=== PATIENT | male | born 1940 | race Caucasian/White ===

== ENCOUNTER → 2016-09-16 | Outpatient (CLI) | payer MEDICARE | LOC: LAB.O 14:48 | PROVIDERS: ATTEND Urology | DX: C61 Malignant neoplasm of prostate (principal) ==

== ENCOUNTER → 2016-12-14 | Outpatient (CLI) | payer MEDICARE | END | disposition home or self-care (01) | LOC: NC 12:37 | PROVIDERS: ATTEND Family Medicine | DX: E78.2 Mixed hyperlipidemia (principal); I10 Essential (primary) hypertension ==

== ENCOUNTER 2017-03-01 10:26 | Emergency (ER) | payer MEDICARE ==
--- NOTE | 2017-03-01 10:39 | ED.PDOC ---
History of Present Illness - General Chief Complaint: GI Problem Stated Complaint: Vomiting blood and bloody diarrhea Time Seen by Provider: 03/01/17 10:33 Information Source: patient, RN notes reviewed, Vital Signs reviewed, EMS Exam Limitations: no limitations - History of Present Illness Initial Comments: Patient comes in with c/o bloody diarrhea and vomiting that started last night. Has ~4 bloody stools last night and one again this morning. ~4-6 episodes of vomiting, initially with dark blood but the last episode on the way to the ER was just clear liquid - no visible blood. Reports some mild abdominal cramping with this but no severe pain. + weakness. NO prior episodes of hematemasis or rectal bleeding. Had EGD and colonoscopy years (>10) ago. No PURCELL, fever, chills, chest pain or SOB. Abdominal Pain Onset Location: generalized abdomen Pain Radiation: no radiation Quality: mild, cramping Timing/Duration: 7-24 hours Improving Factors: nothing Worsening Factors: nothing Associated Symptoms: diarrhea, fatigue, nausea/vomiting, weakness Review of Systems - Review of Systems Constitutional: States: malaise, weakness. Denies: chills, fever Respiratory: States: no symptoms reported. Denies: cough, short of breath Cardiology: States: no symptoms reported. Denies: chest pain Gastrointestinal/Abdominal: States: see HPI, abdominal pain, diarrhea, nausea, vomiting Musculoskeletal: States: no symptoms reported Skin: States: no symptoms reported Neurological: States: no symptoms reported All other Systems: No Change from Baseline Past Medical History (General) - Patient Medical History Hx Seizures: No Hx Dementia: No Hx of COPD: Yes Hx Cardiac Disorders: No Hx Hypertension: Yes Hx Diabetes: No Hx Renal Disease: No Hx Cancer: Yes - prostrate - Social History Hx Alcohol Use: Yes Family Medical History - Family History Father Family History: Unknown Physical Exam - Physical Exam General Appearance: Alert, Comfortable, No apparent distress, Well Developed, Well Nourished Neck: supple, normal inspection Respiratory: chest non-tender, lungs clear, normal breath sounds, no respiratory distress, no accessory muscle use Cardiovascular/Chest: normal peripheral pulses, regular rate, rhythm, no edema, no gallop, no murmur Peripheral Pulses: 2+ Gastrointestinal/Abdominal: non tender, soft, no organomegaly, no pulsatile mass , abnormal bowel sounds - hypoactive Rectal Exam: normal rectal tone, heme positive stool - Grossly bloody, hemorrhoids Extremity: normal range of motion, non-tender, normal inspection, no pedal edema Neurologic: alert, normal mood/affect, oriented x 3 Skin Exam: normal color, warm/dry Comments: Vital Signs 03/01/17 10:29 Temperature 97.6 F Pulse Rate [ 134 H left brachial] Respiratory 20 Rate Blood Pressure 112/78 [left brachial] O2 Sat by Pulse 94 L Oximetry Progress - Progress Progress: 03/01/17 11:17 Patient is feeling much better after Zofran 4mg IV - Results/Orders Results/Orders: Laboratory Tests 03/01/17 03/01/17 03/01/17 10:20 10:20 10:20 WBC 7.7 RBC 4.27 L Hgb 14.4 Hct 43.6 MCV 102.1 H MCH 33.7 H MCHC 32.9 L RDW 14.4 Plt Count 230 MPV 10.9 H Absolute Neuts (auto) 5.70 Absolute Lymphs (auto) 1.50 Absolute Monos (auto) 0.50 Absolute Eos (auto) 0.00 Absolute Basos (auto) 0.00 Neutrophils % 74.0 Lymphocytes % 19.0 L Monocytes % 6.8 Eosinophils % 0.0 L Basophils % 0.2 PT 10.4 INR 0.920 PTT (SP) 25.3 Sodium 141 Potassium 4.0 Chloride 100 L Carbon Dioxide 27 Anion Gap 18.0 BUN 41 H Creatinine 1.15 BUN/Creatinine Ratio 35.7 H Random Glucose 348 H Serum Osmolality 305.2 H Calcium 9.1 Total Bilirubin 1.0 AST 105 H ALT 56 Alkaline Phosphatase 156 H Serum Total Protein 6.6 Albumin 3.1 L Globulin 3.5 Albumin/Globulin Ratio 0.9 L Stool Occult Blood 03/01/17 11:20 WBC RBC Hgb Hct MCV MCH MCHC RDW Plt Count MPV Absolute Neuts (auto) Absolute Lymphs (auto) Absolute Monos (auto) Absolute Eos (auto) Absolute Basos (auto) Neutrophils % Lymphocytes % Monocytes % Eosinophils % Basophils % PT INR PTT (SP) Sodium Potassium Chloride Carbon Dioxide Anion Gap BUN Creatinine BUN/Creatinine Ratio Random Glucose Serum Osmolality Calcium Total Bilirubin AST ALT Alkaline Phosphatase Serum Total Protein Albumin Globulin Albumin/Globulin Ratio Stool Occult Blood Positive Departure - Departure Clinical Impression: Hematemesis with nausea, Hematochezia Time of Disposition: 12:17 Disposition: Transfer to Hospital Condition: Fair Departure Forms: ED Discharge - Pt. Copy, Patient Portal Self Enrollment Referrals: Dae Cat MD [Primary Care Provider] - 1-2 Weeks Home Medications: Ambulatory Orders Albuterol Inhaler [Ventolin Hfa Inhaler] 2 puff INH Q6H #1 inh 12/23/14 Budesonide Inhaler [Pulmicort Flexhaler] 1 puff INH BID #1 inh 12/23/14 Methylprednisolone [Medrol Dose Maximus] 4 mg PO QAM #1 tab 12/23/14 Pantoprazole Sodium [Protonix] 20 mg PO QAM #30 tab 12/23/14 Sucralfate Tab [Carafate Tab] 1 gm PO Q6H #20 tab 12/23/14 Transfer to Outside Facility - Transfer Information Accepting Provider:: Dr. Jacob Accepting Facility: [facility] Reason for Transfer: required specialist not available - [facility]
[2017-03-01] MEDS: ONDANSETRON INJ 4 MG/2 ML VIAL IV ONE (10:42)
--- NOTE | 2017-03-01 11:13 | RAD ---
EXAM DESCRIPTION: Structure series, 3 views CLINICAL HISTORY: Hematemasis rectal bleeding FINDINGS/ IMPRESSION: Normal cardiomediastinal silhouette. Mild hyperinflation. The lungs are clear Bowel gas pattern is normal. No bowel obstruction, pneumatosis or free intraperitoneal air. No organomegaly or obvious abdominal mass lesion Electronically signed by: Michael Hearn MD 03/01/2017 11:12 AM CDT
[2017-03-01] MEDS ORDERED: PANTOPRAZOLE SODIUM IV 40 MG VIAL ONE (12:32)
[2017-03-01] MEDS ORDERED: SODIUM CHLORIDE 0.9% 100ML 100 ML IVPB ONE (12:33)
[2017-03-01] MEDS: SODIUM CHLORIDE 0.9% 1000ML 1,000 ML IVS ONE (12:42)
[2017-03-01] MEDS: PANTOPRAZOLE INJECTION 40 MG in SODIUM CHLORIDE 0.9% 100ML 100 ML IVPB ONE (12:42)
[2017-03-01] MEDS: PANTOPRAZOLE SODIUM IV 40 MG VIAL IV ONE (12:55)
[2017-03-01 13:23] VITALS: BP 110/70; TEMP 98; O2SAT 99
== END 2017-03-01 13:23 | disposition short-term general hospital (02) ==
LOC: ER 10:26
DX: K92.0 Hematemesis (principal); K92.1 Melena; J44.9 Chronic obstructive pulmonary disease, unspecified; I10 Essential (primary) hypertension; Z85.46 Personal history of malignant neoplasm of prostate
CPT/HCPCS: 74020; 80053; 82270; 85025; 85610; 85730; J2405; J7030; J7050

== ENCOUNTER → 2017-03-22 | Outpatient (CLI) | payer MEDICARE | END | disposition home or self-care (01) | LOC: NC 11:58 | PROVIDERS: ATTEND Family Medicine | DX: I10 Essential (primary) hypertension (principal); Z85.46 Personal history of malignant neoplasm of prostate; E78.2 Mixed hyperlipidemia; K92.2 Gastrointestinal hemorrhage, unspecified ==

== ENCOUNTER → 2017-09-01 | Outpatient (CLI) | payer MEDICARE | LOC: LAB.O 13:46 | PROVIDERS: ATTEND Urology | DX: C61 Malignant neoplasm of prostate (principal) ==

== ENCOUNTER 2017-09-18 11:59 | Emergency (ER) | payer MEDICARE ==
--- NOTE | 2017-09-18 12:41 | ED.PDOC ---
History of Present Illness - General Chief Complaint: Neuro Symptoms/Deficits Stated Complaint: dizziness, sob Time Seen by Provider: 09/18/17 12:32 Source: patient Exam Limitations: no limitations - History of Present Illness Initial Comments: Patient presents with light-headedness. It occurs when he stands and while he is walking. It is intermittent and he has had multiple previous episodes but today he felt like it was worse. He says that his heart rate "goes up" at that time as well. He has COPD and still smokes cigarettes. He says that he has never had a heart attack or any other problems with his heart. Denies chest pain or dyspnea. No new cough. No other complaints. Timing/Duration: changing over time Severity: moderate Improving Factors: rest Worsening Factors: movement Associated Symptoms: other - as in HPI Allergies/Adverse Reactions: Allergies NO KNOWN ALLERGY Allergy (Verified 09/18/17 12:20) Home Medications: Ambulatory Orders Albuterol Inhaler [Ventolin Hfa Inhaler] 2 puff INH Q6H #1 inh 12/23/14 Budesonide Inhaler [Pulmicort Flexhaler] 1 puff INH BID #1 inh 12/23/14 Methylprednisolone [Medrol Dose Maximus] 4 mg PO QAM #1 tab 12/23/14 Pantoprazole Sodium [Protonix] 20 mg PO QAM #30 tab 12/23/14 Sucralfate Tab [Carafate Tab] 1 gm PO Q6H #20 tab 12/23/14 Prednisone [Deltasone] 20 mg PO DAILY #4 tab 09/18/17 Past Medical History (General) - Patient Medical History Hx Seizures: No Hx Dementia: No Hx of COPD: Yes Hx Cardiac Disorders: No Hx Hypertension: Yes Hx Diabetes: No Hx Renal Disease: No Hx Cancer: Yes - prostrate Surgical History: appendectomy - Vaccination History Hx Influenza Vaccination: Yes Hx Pneumococcal Vaccination: Yes - Social History Hx Tobacco Use: Yes Hx Alcohol Use: Yes - wine daily - Female History Patient is a Female of Child Bearing Age (10 -59 yrs old): No Family Medical History - Family History Father Family History: Unknown Physical Exam - Physical Exam General Appearance: Alert Eye Exam: bilateral normal Ears, Nose, Throat: normal ENT inspection Neck: non-tender Respiratory: wheezing - expiratory wheezing in mid and upper lung justin Cardiovascular/Chest: normal peripheral pulses, regular rate, rhythm Gastrointestinal/Abdominal: normal bowel sounds, non tender, soft Back Exam: no CVA tenderness Extremity: normal range of motion, non-tender 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 There were chronic T wave inversions. The EKG was similar to previous in 2015. The patient has an appointment with cardiology in [address] showed no acute abnormalities. There was mastoid air cell mastoiditis but there was no TM perforation nor purulence. The patient is asymptomatic for systemic mastoiditis. Will have him see his pcp regarding this. CXR showed COPD but nothing acute. wbc normal. Patient was given NS one liter IV bolus x one and solumedrol 60 mg IV x one. Sent home with 4 more days of oral prednisone 20 mg po qday. Questions were elicited and answered. Patient voiced understanding and agreement with the plan. Laboratory Tests 09/18/17 09/18/17 09/18/17 12:54 12:54 12:54 WBC 5.6 RBC 5.57 Hgb 13.7 L Hct 41.2 L MCV 74.0 L MCH 24.5 L MCHC 33.3 RDW 23.1 H Plt Count 257 MPV 9.2 Absolute Neuts (auto) 3.60 Absolute Lymphs (auto) 1.40 Absolute Monos (auto) 0.50 Absolute Eos (auto) 0.10 Absolute Basos (auto) 0.00 Neutrophils % 65.3 Lymphocytes % 24.3 Monocytes % 8.2 Eosinophils % 1.3 Basophils % 0.9 PT INR PTT (SP) pCO2 pO2 HCO3 ABG pH ABG O2 Saturation ABG Base Excess ABG Deoxyhemoglobin Oxyhemoglobin % Carboxyhemoglobin % Methemoglobin % Sat Calc Total Hemoglobin Sodium 135 Potassium 3.7 Chloride 99 L Carbon Dioxide 27 Anion Gap 12.7 BUN 18 Creatinine 0.83 BUN/Creatinine Ratio 21.7 H Random Glucose 176 H Serum Osmolality 276.3 Calcium 9.8 Total Bilirubin 0.8 AST 33 ALT 23 Alkaline Phosphatase 79 Creatine Kinase 32 L CK-MB (CK-2) 1.5 CK-MB (CK-2) % Not Reportable Troponin I 0.02 B-Natriuretic Peptide 51.1 Serum Total Protein 7.2 Albumin 3.5 Globulin 3.7 H Albumin/Globulin Ratio 0.9 L TSH Thyroxine (T4) Urine Color Urine Appearance Urine pH Ur Specific [place] Urine Protein Urine Glucose (UA) Urine Ketones Urine Blood Urine Nitrite Urine Bilirubin Urine Urobilinogen Ur Leukocyte Esterase Urine RBC Urine WBC Ur Epithelial Cells Urine Bacteria 09/18/17 09/18/17 09/18/17 12:54 12:54 13:18 WBC RBC Hgb Hct MCV MCH MCHC RDW Plt Count MPV Absolute Neuts (auto) Absolute Lymphs (auto) Absolute Monos (auto) Absolute Eos (auto) Absolute Basos (auto) Neutrophils % Lymphocytes % Monocytes % Eosinophils % Basophils % PT 10.8 INR 0.930 PTT (SP) 31.0 pCO2 38 pO2 77 L HCO3 26.2 ABG pH 7.450 ABG O2 Saturation 97.3 ABG Base Excess 2.7 ABG Deoxyhemoglobin 2.6 Oxyhemoglobin % 92.4 L Carboxyhemoglobin % 3.7 H Methemoglobin % Sat 1.3 Calc Total Hemoglobin 12.8 L Sodium Potassium Chloride Carbon Dioxide Anion Gap BUN Creatinine BUN/Creatinine Ratio Random Glucose Serum Osmolality Calcium Total Bilirubin AST ALT Alkaline Phosphatase Creatine Kinase CK-MB (CK-2) CK-MB (CK-2) % Troponin I B-Natriuretic Peptide Serum Total Protein Albumin Globulin Albumin/Globulin Ratio TSH 1.46 Thyroxine (T4) 5.24 L Urine Color Urine Appearance Urine pH Ur Specific [place] Urine Protein Urine Glucose (UA) Urine Ketones Urine Blood Urine Nitrite Urine Bilirubin Urine Urobilinogen Ur Leukocyte Esterase Urine RBC Urine WBC Ur Epithelial Cells Urine Bacteria 09/18/17 14:35 WBC RBC Hgb Hct MCV MCH MCHC RDW Plt Count MPV Absolute Neuts (auto) Absolute Lymphs (auto) Absolute Monos (auto) Absolute Eos (auto) Absolute Basos (auto) Neutrophils % Lymphocytes % Monocytes % Eosinophils % Basophils % PT INR PTT (SP) pCO2 pO2 HCO3 ABG pH ABG O2 Saturation ABG Base Excess ABG Deoxyhemoglobin Oxyhemoglobin % Carboxyhemoglobin % Methemoglobin % Sat Calc Total Hemoglobin Sodium Potassium Chloride Carbon Dioxide Anion Gap BUN Creatinine BUN/Creatinine Ratio Random Glucose Serum Osmolality Calcium Total Bilirubin AST ALT Alkaline Phosphatase Creatine Kinase CK-MB (CK-2) CK-MB (CK-2) % Troponin I B-Natriuretic Peptide Serum Total Protein Albumin Globulin Albumin/Globulin Ratio TSH Thyroxine (T4) Urine Color Yellow Urine Appearance Clear Urine pH 7.0 Ur Specific [place] 1.020 Urine Protein Trace Urine Glucose (UA) Negative Urine Ketones 15 H Urine Blood Negative Urine Nitrite Negative Urine Bilirubin Negative Urine Urobilinogen 0.2 Ur Leukocyte Esterase Negative Urine RBC 0 Urine WBC 0 Ur Epithelial Cells 0 Urine Bacteria 0 09/18/17 15:37 Departure - Departure Clinical Impression: Light headedness, Tobacco abuse counseling Disposition: Discharge to Home or Self Care Condition: Good Departure Forms: ED Discharge - Pt. Copy, Patient Portal Self Enrollment Diet: other - as per your regular doctor Activity: other - as per your regular doctor Referrals: Dae Cat MD [Primary Care Provider] - 1-2 Weeks Prescriptions: Prednisone [Deltasone] 20 mg PO DAILY #4 tab Home Medications: Ambulatory Orders Albuterol Inhaler [Ventolin Hfa Inhaler] 2 puff INH Q6H #1 inh 12/23/14 Budesonide Inhaler [Pulmicort Flexhaler] 1 puff INH BID #1 inh 12/23/14 Methylprednisolone [Medrol Dose Maximus] 4 mg PO QAM #1 tab 12/23/14 Pantoprazole Sodium [Protonix] 20 mg PO QAM #30 tab 12/23/14 Sucralfate Tab [Carafate Tab] 1 gm PO Q6H #20 tab 12/23/14 Prednisone [Deltasone] 20 mg PO DAILY #4 tab 09/18/17 Additional Instructions: Stop smoking. See your regular doctor about smoking cessation options. Take the mediation as prescribed. Return immediately to the E.R. for worsening symptoms, fainting, shortness of breath, or chest pain.
--- NOTE | 2017-09-18 13:14 | RAD ---
Procedure: XR CHEST 2 VIEWS Exam Date: 09/18/2017 12:44 PM CDT Ordering Provider: Rahul Garcia Clinical Indication: light-headedness and palpitations Comparison: None Findings: Lungs are hyperexpanded. No lobar consolidation, pleural effusion, or pneumothorax. Heart size is within normal limits. No acute osseous abnormality. Impression: COPD. No lobar consolidation. Electronically signed by: Darcie Pratt MD 09/18/2017 1:12 PM CDT
[2017-09-18] MEDS ORDERED: SODIUM CHLORIDE 0.9% 1000ML 1,000 ML IVS ONE (13:27)
--- NOTE | 2017-09-18 14:45 | CT ---
PROCEDURE: Head HISTORY: light-headedness Indication: Same as above Comparison: None Technique: CT of the head was done without intravenous contrast was done in the orthogonal planes. This exam was performed according to our departmental dose-optimization program, which includes automated exposure control, adjustment of the mA and/or KV according to the patient's size and/or use of iterative reconstruction technique. FINDINGS: There is no intracranial hemorrhage, midline shift mass effect or acute focal infarct. There is prominence of the sylvian fissures and the cortical sulci reflecting age related volume loss. If clinical concern exists regarding an acute ischemic/vascular pathology being responsible for patient's symptomatology, an MRI of the brain is more sensitive than the current study, in ruling out such a possibility. There is good velásquez/white matter differentiation. The ventricular system is normal. The mastoid air cells show evidence of prior bilateral mastoid surgery and presence of mastoiditis in the remaining bilateral mastoid air cells . The paranasal sinuses are unremarkable . There is no visualization of acute fractures involving the calvarium or the skull base. IMPRESSION: There is no acute intracranial abnormality. Age related and chronic involutional changes are seen. Electronically signed by: Preston Garcia MD 09/18/2017 2:44 PM CDT Workstation: [id number]
[2017-09-18 15:15] VITALS: O2SAT 98
[2017-09-18] MEDS ORDERED: methylPREDNISolone SODIUM SUC 125 MG/2 ML VIAL IV ONE (15:26)
[2017-09-18 15:52] VITALS: BP 144/89; TEMP 97.9
== END 2017-09-18 15:50 | disposition home or self-care (01) ==
LOC: ER 11:59
DX: R42 Dizziness and giddiness (principal); J44.9 Chronic obstructive pulmonary disease, unspecified; I10 Essential (primary) hypertension; F17.210 Nicotine dependence, cigarettes, uncomplicated; Z85.46 Personal history of malignant neoplasm of prostate
CPT/HCPCS: 36415; 36600; 70450; 71046; 80053; 81001; 82550; 82553; 82803; 82805; 83880; 84436; 84443; 84484; 85025; 85610; 85730; 93005; J2930; J7030

== ENCOUNTER → 2017-10-08 | Outpatient (CLI) | payer MEDICARE ==
--- NOTE | 2017-10-08 13:50 | CT ---
EXAM DESCRIPTION: Abdoment/Pelvis w/o Contrast CLINICAL HISTORY: 77 years, Male, UNSPECIFIED ABD PAIN COMPARISON: X-ray abdomen March 01, 2017 TECHNIQUE: CT of the abdomen and pelvis is performed according to our non contrast protocol. FINDINGS: The lung bases are clear. Liver, spleen, and pancreas are unremarkable. No calcified gallstones. The right kidney is unremarkable. There are parapelvic cysts in the central left kidney. Prominent left renal pelvis is somewhat higher in density than expected which could indicate blood in the pelvis. The irregularity or cystic outpouching of the posterior inferior aspect of the pelvis is questioned. A mass in the lumen of the pelvis is not thought highly likely but intraluminal contrast (retrograde pyelography, excretory urogram, delayed CT images with contrast) might be helpful to ensure complete opacification and to rule out a filling defect which might suggest a urothelial neoplasm. Density is 37 Hounsfield units compared to the expected density of fluid approximately 0 Hounsfield units. Correlate for the presence of hematuria. Small bowel loops appear normal in caliber with normal wall thickness. There is no lymphadenopathy, inflammation, or free fluid observed. In the pelvis, the appendix is not seen, evidently surgically absent. No inflammation around the cecum or terminal ileum or sigmoid colon. No stones in the distal ureters or bladder. Rectal wall thickness is normal for degree of distention. No free fluid or mass in the pelvis. Prostate is not enlarged. No inguinal or lower pelvic adenopathy. Coronal and sagittal reformatted images confirm the findings. IMPRESSION: Prominent left renal pelvis with high density suggesting hematuria or urothelial neoplasm. Further evaluation is recommended as discussed above. This exam was performed according to our departmental dose-optimization program, which includes automated exposure control, adjustment of the mA and/or kV according to patient size and/or use of iterative reconstruction technique. Total DLP equals 1021.04 mGycm. Electronically signed by: Raúl Llanos MD 10/08/2017 1:48 PM CDT
== END ==
LOC: CT 09:00
PROVIDERS: ATTEND Family Medicine
DX: R10.9 Unspecified abdominal pain (principal)

== ENCOUNTER → 2017-11-19 | Outpatient (CLI) | payer MEDICARE ==
--- NOTE | 2017-11-21 17:32 | CT ---
EXAM DESCRIPTION: Abdomen w/Contrast: Computed Tomography. CLINICAL HISTORY: N13.0 COMPARISON: None. TECHNIQUE: Spiral-axial scans at 5.0 mm intervals through the abdomen, after nonionic IV contrast. No oral contrast. Coronal and sagittal 2.0 mm reconstructions. No Delayed scans. No adverse reactions. Total Exam DLP: 682.16 mGy-cm. This exam was performed according to our departmental CT dose-optimization program which includes automated exposure control, adjustment of the mA and/or kV according to patient size and/or use of iterative reconstruction technique; to reduce radiation dose to as low as reasonably achievable (ALARA). FINDINGS: Kidneys: Mild hydronephrosis in the superior pole of the left kidney with fluid density in the collecting systems. Delayed images were not obtained. The mid and inferior collecting system showing moderate hydronephrosis. There is increased density in the collecting system, +60-+80 HU. Smooth expansion of the renal pelvis. Abrupt Transition from the expanded left renal pelvis to the normal caliber of the proximal left ureter. No large calcifications in the left kidney or proximal ureter. Uniform enhancement of the renal cortex with no hydronephrosis and no large calcifications in the right kidney or proximal ureter. Lung bases and pleura: Coronary artery calcifications otherwise negative. Liver, Stomach, Spleen, Adrenal Glands: 17 cm right lobe long axis. Overall bone density of the liver. Stomach is unremarkable. Remaining solid organs are negative. Pancreas, Gallbladder, Ducts: Gallbladder visualized. Duct is negative. Basilar calcifications around the pancreas. Mesentery: Stable fascial thickening in the abdomen with no new mesenteric stranding no free air or ascites. Aorta: Moderate atherosclerotic calcifications including the ostia of the major branch vessels. Narrowing of the distal lumen extending into the bilateral common iliac arteries. No para-aortic mass. Small Bowel: Focally dilated loop of distal jejunum or proximal ileum in the anterior left lower quadrant of the abdomen, with minimal wall thickening (axial image 52 and coronal images 42-44). No stranding of the surrounding mesentery or fascial thickening. No dilation of proximal or distal segments. Terminal Ileum/Cecum: Not imaged. Tip of the appendix partially visualized. Normal fatty density. Colon: Normal caliber. Spine: L4-5 anterolisthesis. Overall bone density decreased. Also Schmorl's nodes in the T9 and T10 endplates. Abdominal Wall/Back Soft Tissues: Negative. IMPRESSION: 1. Dense mass or dense material, no focal stones, resulting in smooth expansion of the left renal pelvis and abrupt transition to normal caliber of the left ureter. Mild hydronephrosis in the left kidney with no radiodense stones in the kidney or ureter. Urothelial neoplasm cannot be excluded. Consider follow-up scan with IV contrast and delayed images of the abdomen and pelvis. Right kidney and ureter are unremarkable. 2. Focal segment of distal jejunum or proximal ileum with intraluminal material, inflammation or mass. Thickened mucosa and narrowing of the lumen seen on the prior study. Consider fluoroscopic guided barium contrast small bowel follow through for further evaluation. 3. Mild hepatomegaly with fatty infiltration. Moderate to severe atherosclerotic changes of the distal abdominal aorta. Spondylosis in the upper lumbar spine. Electronically signed by: Mendez Roach MD 11/21/2017 5:31 PM CDT
== END ==
LOC: CT 13:30
PROVIDERS: ATTEND Urology
DX: C61 Malignant neoplasm of prostate (principal); N13.0 Hydronephrosis with ureteropelvic junction obstruction; R16.0 Hepatomegaly, not elsewhere classified; K76.0 Fatty (change of) liver, not elsewhere classified; I70.0 Atherosclerosis of aorta

== ENCOUNTER → 2017-11-25 | Outpatient (CLI) | payer MEDICARE ==
--- NOTE | 2017-11-26 08:32 | NM ---
EXAM DESCRIPTION: Bone Scan, Whole Body CLINICAL HISTORY: 77 years, Male, C 61, malignant neoplasm of the prostate, injured left rib four weeks ago Imaging correlation with CT of the abdomen November 19, 2017 as well as x-ray abdomen and chest February 19, 2017 RADIOPHARMACEUTICAL: 29.6 mCi technetium 99m-MDP was administered intravenously. Three-hour delayed images of the whole body were obtained. FINDINGS: Frontal view shows intense increased activity in the left lower rib thought to be the anterolateral ninth rib correlating with CT findings from November 19, 2017. This may be related to the patient's previous injury. In addition there is increased activity in the right hip joint consistent with arthritic changes. Patient had an x-ray of the abdomen in February 2017 which showed total left hip arthroplasty, brachytherapy seeds in the prostate and severe osteoarthrosis of the right hip. There is activity in the kidneys as well as urinary bladder. Some perineal urine contamination is present. Other areas of the skeletal system show normal radionuclide accumulation. There is mild increased activity in the upper left C-spine suggesting mild degenerative change. Other then the left ninth rib, no focal intense radionuclide accumulation of the skeletal system is seen to suggest prostate metastatic disease. IMPRESSION: Positive uptake in the left ninth rib consistent with healing fracture. Increased activity in the right hip consistent with osteoarthrosis. Otherwise negative for evidence of prostate cancer osseous metastatic disease. Electronically signed by: Raúl Llanos MD 11/26/2017 8:30 AM CDT
== END ==
LOC: NM 09:30
PROVIDERS: ATTEND Urology
DX: C61 Malignant neoplasm of prostate (principal); N13.0 Hydronephrosis with ureteropelvic junction obstruction

== ENCOUNTER 2017-12-19 17:07 | Emergency (ER) | payer MEDICARE ==
[2017-12-19 17:19] VITALS: BP 106/63; TEMP 98.5; O2SAT 96
[2017-12-19] MEDS ORDERED: KETOROLAC TROMETHAMINE INJ 30 MG/ML VIAL IM ONE (17:23)
[2017-12-19] MEDS ORDERED: KETOROLAC TROMETHAMINE INJ 30 MG/ML VIAL ONE (17:23)
--- NOTE | 2017-12-19 17:27 | ED.PDOC ---
History of Present Illness - General Chief Complaint: General Stated Complaint: left sided rib pain Time Seen by Provider: 12/19/17 17:24 Source: patient Exam Limitations: no limitations Additional Information: 77 YEAR OLD FELL AND INJURED LEFT SIDE OF THE CHEST LAST EVEVNING PRESENTS WITH PAIN ON THE LEFT ANTERIOR CHEST - History of Present Illness Timing/Duration: 24 hours Severity: moderate Improving Factors: immobilization Worsening Factors: movement Associated Symptoms: chest pain, shortness of breath Allergies/Adverse Reactions: Allergies NO KNOWN ALLERGY Allergy (Verified 09/18/17 12:20) Home Medications: Ambulatory Orders Albuterol Inhaler [Ventolin Hfa Inhaler] 2 puff INH Q6H #1 inh 12/23/14 Budesonide Inhaler [Pulmicort Flexhaler] 1 puff INH BID #1 inh 12/23/14 Methylprednisolone [Medrol Dose Maximus] 4 mg PO QAM #1 tab 12/23/14 Pantoprazole Sodium [Protonix] 20 mg PO QAM #30 tab 12/23/14 Sucralfate Tab [Carafate Tab] 1 gm PO Q6H #20 tab 12/23/14 Prednisone [Deltasone] 20 mg PO DAILY #4 tab 09/18/17 Acetamin W/Cod #3 Tab [Tylenol w/CODEINE #3] 1 ea PO Q6HR PRN #40 tab 12/19/17 Review of Systems - Review of Systems Constitutional: States: no symptoms reported EENTM: States: no symptoms reported Respiratory: States: no symptoms reported Cardiology: States: no symptoms reported Gastrointestinal/Abdominal: States: no symptoms reported Genitourinary: States: no symptoms reported Skin: States: no symptoms reported Neurological: States: no symptoms reported Endocrine: States: no symptoms reported Hematologic/Lymphatic: States: no symptoms reported Past Medical History (General) - Patient Medical History Hx Seizures: No Hx Dementia: No Hx of COPD: Yes Hx Cardiac Disorders: No Hx Hypertension: Yes Hx Diabetes: No Hx Renal Disease: No Hx Cancer: Yes - prostrate - Vaccination History Hx Influenza Vaccination: Yes Hx Pneumococcal Vaccination: Yes - Social History Hx Tobacco Use: Yes Hx Alcohol Use: Yes - wine daily Family Medical History - Family History Father Family History: Unknown Physical Exam - Physical Exam General Appearance: Alert, Obvious distress Eye Exam: bilateral normal Ears, Nose, Throat: hearing grossly normal, normal ENT inspection, normal pharynx Neck: non-tender, full range of motion, supple Respiratory: chest non-tender, lungs clear, normal breath sounds, no respiratory distress, no accessory muscle use, rhonchi, other - TENDER EFT ANTERIOR CHEST WALL Cardiovascular/Chest: normal peripheral pulses, regular rate, rhythm, no edema, no gallop, no JVD, no murmur Gastrointestinal/Abdominal: normal bowel sounds, non tender, soft, no organomegaly Back Exam: normal inspection, no CVA tenderness Extremity: non-tender, normal inspection Skin Exam: normal color, warm/dry Lymphatic: no adenopathy Progress - EKG/XRAY/CT Xray Comments: fracture left 7 th rib Departure - Departure Clinical Impression: COPD (chronic obstructive pulmonary disease), Fracture of rib of left side Time of Disposition: 17:50 Disposition: Discharge to Home or Self Care Condition: Good Departure Forms: ED Discharge - Pt. Copy, Patient Portal Self Enrollment Diet: resume usual diet Referrals: Dae Cat MD [Primary Care Provider] - 1-2 Weeks Prescriptions: Acetamin W/Cod #3 Tab [Tylenol w/CODEINE #3] 1 ea PO Q6HR PRN #40 tab PRN Reason: Mild To Moderate Pain Home Medications: Ambulatory Orders Albuterol Inhaler [Ventolin Hfa Inhaler] 2 puff INH Q6H #1 inh 12/23/14 Budesonide Inhaler [Pulmicort Flexhaler] 1 puff INH BID #1 inh 12/23/14 Methylprednisolone [Medrol Dose Maximus] 4 mg PO QAM #1 tab 12/23/14 Pantoprazole Sodium [Protonix] 20 mg PO QAM #30 tab 12/23/14 Sucralfate Tab [Carafate Tab] 1 gm PO Q6H #20 tab 12/23/14 Prednisone [Deltasone] 20 mg PO DAILY #4 tab 09/18/17 Acetamin W/Cod #3 Tab [Tylenol w/CODEINE #3] 1 ea PO Q6HR PRN #40 tab 12/19/17
[2017-12-19] MEDS ORDERED: ACETAMINOPHEN W/COD #3 TAB (ER Disp) PO ONE (17:49)
--- NOTE | 2017-12-19 17:57 | RAD ---
EXAM DESCRIPTION: Chest,2 Views (accession [id number]), Ribs,Left 3 Views (accession [id number]) CLINICAL HISTORY: left rib pain after fall COMPARISON: 09/18/2017. FINDINGS: Frontal view of the chest and views of the left ribs were submitted. Cardiac silhouette is within normal limits. There is no focal parenchymal infiltrate. No pleural effusion. Flattening of hemidiaphragms consistent with COPD. No pneumothorax. There is no discrete displaced acute rib fracture. IMPRESSION: No acute rib fracture noted. No evidence of acute cardiopulmonary disease. Electronically signed by: Lisa Arechiga MD 12/19/2017 5:56 PM CDT
--- NOTE | 2017-12-19 17:57 | RAD ---
EXAM DESCRIPTION: Chest,2 Views (accession [id number]), Ribs,Left 3 Views (accession [id number]) CLINICAL HISTORY: left rib pain after fall COMPARISON: 09/18/2017. FINDINGS: Frontal view of the chest and views of the left ribs were submitted. Cardiac silhouette is within normal limits. There is no focal parenchymal infiltrate. No pleural effusion. Flattening of hemidiaphragms consistent with COPD. No pneumothorax. There is no discrete displaced acute rib fracture. IMPRESSION: No acute rib fracture noted. No evidence of acute cardiopulmonary disease. Electronically signed by: Lisa Arechiga MD 12/19/2017 5:56 PM CDT
== END 2017-12-19 17:57 | disposition home or self-care (01) ==
LOC: ER 17:07
DX: S22.32XA Fracture of one rib, left side, initial encounter for closed fracture (principal); J44.9 Chronic obstructive pulmonary disease, unspecified; I10 Essential (primary) hypertension; Z85.46 Personal history of malignant neoplasm of prostate; Z87.891 Personal history of nicotine dependence; Z79.899 Other long term (current) drug therapy; W19.XXXA Unspecified fall, initial encounter
CPT/HCPCS: 71046; 71101; J1885

== ENCOUNTER 2018-01-08 19:31 | Emergency (ER) | payer MEDICARE ==
[2018-01-08] MEDS ORDERED: PANTOPRAZOLE SODIUM IV 40 MG VIAL IV ONE (20:16)
[2018-01-08] MEDS ORDERED: ONDANSETRON INJ 4 MG/2 ML VIAL IV ONE (20:16)
[2018-01-08] MEDS ORDERED: SODIUM CHLORIDE 0.9% 500ML 500 ML IVS ONE (20:17)
[2018-01-08] MEDS ORDERED: IPRATROPIUM/ALBUTEROL 3 ML VIAL NEB ONE (20:18)
--- NOTE | 2018-01-08 20:37 | ED.PDOC ---
History of Present Illness - General Chief Complaint: Abdominal Pain Stated Complaint: abdomen pain, black stools Time Seen by Provider: 01/08/18 20:09 Information Source: patient Exam Limitations: no limitations - History of Present Illness Initial Comments: pt has had epigastric pain x 2 days with black stool. Has had multiple small stools today. Hx of bleeding ulcers. denies "blood thinners" Abdominal Pain Onset Location: epigastric Pain Radiation: no radiation Quality: moderate Timing/Duration: 24 hours Improving Factors: nothing Worsening Factors: nothing Associated Symptoms: diarrhea, fatigue, weakness Review of Systems - Review of Systems Constitutional: States: malaise, weakness EENTM: States: no symptoms reported Respiratory: States: short of breath, wheezing Cardiology: States: no symptoms reported Gastrointestinal/Abdominal: States: abdominal pain, nausea Genitourinary: States: no symptoms reported Musculoskeletal: States: no symptoms reported Skin: States: no symptoms reported Neurological: States: no symptoms reported Endocrine: States: no symptoms reported Past Medical History (General) - Patient Medical History Hx Seizures: No Hx Stroke: No Hx Dementia: No Hx Asthma: No Hx of COPD: Yes Hx Cardiac Disorders: No Hx Congestive Heart Failure: No Hx Pacemaker: No Hx Hypertension: Yes Hx Thyroid Disease: No Hx Diabetes: No Hx Gastroesophageal Reflux: Yes Hx Renal Disease: No Hx Cancer: Yes - prostrate Hx of HIV: No Hx Hepatitis C: No Hx MRSA: No - Vaccination History Hx Tetanus, Diphtheria Vaccination: No Hx Influenza Vaccination: Yes Hx Pneumococcal Vaccination: Yes - Social History Hx Tobacco Use: Yes Cigarettes Packs Per Day: 2 Hx Alcohol Use: Yes Family Medical History - Family History Father Family History: Unknown Physical Exam - Physical Exam General Appearance: Alert, No apparent distress Eyes, Ears, Nose, Throat Exam: PERRL/EOMI, pharynx normal Neck: non-tender, full range of motion, normal inspection Respiratory: rhonchi, wheezing, other - tender L lower anterior ribs (from fall one month ago) Cardiovascular/Chest: normal peripheral pulses, regular rate, rhythm, no edema Gastrointestinal/Abdominal: normal bowel sounds, soft, tenderness - epigastric Back Exam: normal inspection Extremity: normal range of motion, no pedal edema Neurologic: alert, normal mood/affect, oriented x 3 Skin Exam: normal color, warm/dry Lymphatic: no adenopathy Departure - Departure Clinical Impression: Upper GI bleed Disposition: Transfer to Hospital Condition: Good Departure Forms: ED Discharge - Pt. Copy, Patient Portal Self Enrollment Instructions: DI for Abdominal Pain-Adult Referrals: Dae Cat MD [Primary Care Provider] - 1-2 Weeks Home Medications: Ambulatory Orders Albuterol Inhaler [Ventolin Hfa Inhaler] 2 puff INH Q6H #1 inh 12/23/14 Budesonide Inhaler [Pulmicort Flexhaler] 1 puff INH BID #1 inh 12/23/14 Methylprednisolone [Medrol Dose Maximus] 4 mg PO QAM #1 tab 12/23/14 Pantoprazole Sodium [Protonix] 20 mg PO QAM #30 tab 12/23/14 Sucralfate Tab [Carafate Tab] 1 gm PO Q6H #20 tab 12/23/14 Prednisone [Deltasone] 20 mg PO DAILY #4 tab 09/18/17 Acetamin W/Cod #3 Tab [Tylenol w/CODEINE #3] 1 ea PO Q6HR PRN #40 tab 12/19/17 Transfer to Outside Facility - Transfer Information Accepting Facility: [facility] Reason for Transfer: required specialist not available - Upper GI bleed will require EGD to evaluate bleeding
[2018-01-08 22:34] VITALS: BP 154/85; TEMP 98.5; O2SAT 96
== END 2018-01-08 22:50 | disposition short-term general hospital (02) ==
LOC: ER 19:31
DX: K92.2 Gastrointestinal hemorrhage, unspecified (principal); R10.13 Epigastric pain; R19.7 Diarrhea, unspecified; R53.1 Weakness; R06.02 Shortness of breath; K21.9 Gastro-esophageal reflux disease without esophagitis; J44.9 Chronic obstructive pulmonary disease, unspecified; I10 Essential (primary) hypertension; F17.210 Nicotine dependence, cigarettes, uncomplicated; Z85.46 Personal history of malignant neoplasm of prostate; Z87.11 Personal history of peptic ulcer disease
CPT/HCPCS: 36415; 80053; 81001; 82270; 85025; 85610; 85730; 86850; 86900; 86901; 94640; J2405; J7040; J7620

== ENCOUNTER → 2018-02-09 | Outpatient (CLI) | payer MEDICARE | LOC: NC 13:54 | PROVIDERS: ATTEND Family Medicine | DX: J44.9 Chronic obstructive pulmonary disease, unspecified (principal); I10 Essential (primary) hypertension; D64.9 Anemia, unspecified; M54.16 Radiculopathy, lumbar region ==

== ENCOUNTER → 2018-05-16 | Outpatient (CLI) | payer MEDICARE | LOC: NC 08:52 | PROVIDERS: ATTEND Family Medicine | DX: J44.9 Chronic obstructive pulmonary disease, unspecified (principal); I10 Essential (primary) hypertension; E78.2 Mixed hyperlipidemia; M54.16 Radiculopathy, lumbar region; D64.9 Anemia, unspecified; K31.819 Angiodysplasia of stomach and duodenum without bleeding; K26.9 Duodenal ulcer, unspecified as acute or chronic, without hemorrhage or perforation ==

== ENCOUNTER → 2018-06-01 | Outpatient (CLI) | payer MEDICARE | LOC: GMAH 14:16 | PROVIDERS: ATTEND Family Medicine | DX: L29.9 Pruritus, unspecified (principal) ==

== ENCOUNTER → 2018-07-18 | Outpatient (CLI) | payer MEDICARE | LOC: NC 15:33 | PROVIDERS: ATTEND Family Medicine | DX: D64.9 Anemia, unspecified (principal) ==

== ENCOUNTER → 2018-08-17 | Outpatient (CLI) | payer MEDICARE | LOC: LAB.O 09:36 | PROVIDERS: ATTEND Internal Medicine Gastroenterology | DX: K92.2 Gastrointestinal hemorrhage, unspecified (principal); D50.9 Iron deficiency anemia, unspecified ==

== ENCOUNTER → 2018-11-09 | Outpatient (CLI) | payer MEDICARE | LOC: NC 11:22 | PROVIDERS: ATTEND Family Medicine | DX: J44.9 Chronic obstructive pulmonary disease, unspecified (principal); I10 Essential (primary) hypertension ==

== ENCOUNTER → 2019-03-08 | Outpatient (CLI) | payer MEDICARE | LOC: GMA MATASK 14:27 | PROVIDERS: ATTEND Family Medicine | DX: R07.2 Precordial pain (principal) ==

== ENCOUNTER 2019-07-10 11:41 | Emergency (ER) | payer MEDICARE ==
[2019-07-10 12:17] VITALS: TEMP 98.7
[2019-07-10] MEDS ORDERED: SODIUM CHLORIDE 0.9% (FLUSH) 10 ML SYG IV PRN (13:56)
--- NOTE | 2019-07-10 14:01 | ED.PDOC ---
History of Present Illness - General Chief Complaint: General Stated Complaint: dizziness and blood in urine, weakness Time Seen by Provider: 07/10/19 13:14 Source: patient - History of Present Illness Initial Comments: 79 yo male with PMH of chronic smoker, COPD who presents with cc of blood in the urine. Reports ongoing now for 3 days, bright red bloody urine without pain with each urination from beginning to end of urination. Denies any dysuria, frequency, hesitancy, testicular pain or swelling. Denies fevers, chills, abd pain, n/v/d, chest pain, dyspnea. Reports some slight dizziness/lightheadedness but no syncope. Reports has lost about 5 lbs recently. No hx of kidney stones reported. Has never had these sx's before. Smokes cigarettes daily. Allergies/Adverse Reactions: Allergies NO KNOWN ALLERGY Allergy (Verified 07/10/19 12:17) Home Medications: Ambulatory Orders Albuterol Inhaler [Ventolin Hfa Inhaler] 2 puff INH Q6H #1 inh 12/23/14 Budesonide Inhaler [Pulmicort Flexhaler] 1 puff INH BID #1 inh 12/23/14 Methylprednisolone [Medrol Dose Maximus] 4 mg PO QAM #1 tab 12/23/14 Pantoprazole Sodium [Protonix] 20 mg PO QAM #30 tab 12/23/14 Sucralfate Tab [Carafate Tab] 1 gm PO Q6H #20 tab 12/23/14 Prednisone [Deltasone] 20 mg PO DAILY #4 tab 09/18/17 Acetamin W/Cod #3 Tab [Tylenol w/CODEINE #3] 1 ea PO Q6HR PRN #40 tab 12/19/17 Review of Systems - Review of Systems Review of Systems: 07/10/19 14:41 as per HPI All other Systems: Reviewed and Negative Past Medical History (General) - Patient Medical History Hx Seizures: No Hx Stroke: No Hx Dementia: No Hx Asthma: No Hx of COPD: Yes Hx Cardiac Disorders: No Hx Congestive Heart Failure: No Hx Pacemaker: No Hx Hypertension: Yes Hx Thyroid Disease: No Hx Diabetes: No Hx Gastroesophageal Reflux: Yes Hx Renal Disease: No Hx Cancer: Yes - prostrate Hx of HIV: No Hx Hepatitis C: No Hx MRSA: No Surgical History: appendectomy - Vaccination History Hx Tetanus, Diphtheria Vaccination: No Hx Influenza Vaccination: Yes Hx Pneumococcal Vaccination: Yes - Social History Hx Tobacco Use: Yes Hx Alcohol Use: No - daily, glass of wine Hx Substance Use: No Family Medical History - Family History Father Family History: Unknown Physical Exam - Physical Exam General Appearance: Alert, Comfortable, No apparent distress Eye Exam: bilateral normal Ears, Nose, Throat: hearing grossly normal, normal ENT inspection, normal pharynx Neck: non-tender, full range of motion, supple, normal inspection Respiratory: chest non-tender, lungs clear, normal breath sounds, no respiratory distress Cardiovascular/Chest: normal peripheral pulses, regular rate, rhythm, no edema, no murmur Peripheral Pulses: radial,right: 2+, radial,left: 2+ Gastrointestinal/Abdominal: normal bowel sounds, non tender, soft, no organomegaly Back Exam: normal inspection, no CVA tenderness, no vertebral tenderness Extremity: normal range of motion, non-tender, normal inspection, no pedal edema, no calf tenderness Neurologic: golf caddie II-XII nml as tested, no motor/sensory deficits, alert, normal mood/affect, oriented x 3 Skin Exam: warm/dry, pallor - mild throughout Lymphatic: no adenopathy Progress - Progress Progress: 07/10/19 13:00 Painless gross hematuria -in smoker, concern for malignancy - bladder tumor most likely. Consider other masses, benign causes, kidney stones, etc... -check UA, CBC, CMP, cardiac work-up 07/10/19 16:36 -Pt's UA with TNTC RBCs. CBC & coags pretty unremarkable. CT A/P w/wo contrast obtained which revealed a filling defect in the left lower renal pelvis which is concerning for mass/malignancy possibly (specifically transitional cell carcinoma mentioned by radiology). The mass was also noted on his 2018 CT scan and now appears slightly larger. Pt reports he wasn't aware of the mass and has not had any further investigation of it to this point. Pt also noted to have punctate calculus in mid left kidney. No other abnormalities found to explain gross hematuria. -I spoke with pt's PCP, Dr. العراقي, regarding the findings. He will have his clinic call the patient tomorrow to schedule a f/u visit later this week for outpatient urology referral. -discussed all of the above with the patient in detail including the kidney mass and concern for possible cancer, all questions answered. -dc pt home in fair condition, return warnings discussed. Advised smoking cessation. Tyree Braden MD Billing #[id number] 07/10/19 13:56 IV Care:Saline Lock per Protoc QSHIFT Telemetry .ONCE Sodium Chloride 0.9% (Flush) [Saline Flush Syringe] 10 ml IV PRN PRN 07/10/19 14:00 EKG STAT UA [URINALYSIS] Stat 07/10/19 14:39 Hold Metformin x 48Hrs [id number] 07/11/19 09:00 Pulse Ox Daily Laboratory Results - last 24 hr 07/10/19 07/10/19 07/10/19 12:15 12:40 12:40 WBC 7.0 RBC 4.68 L Hgb 16.4 Hct 47.5 MCV 101.5 H MCH 35.0 H MCHC 34.4 RDW 14.2 Plt Count 201 MPV 10.6 H Absolute Neuts (auto) 5.40 Absolute Lymphs (auto) 1.00 Absolute Monos (auto) 0.60 Absolute Eos (auto) 0.00 Absolute Basos (auto) 0.00 Neutrophils % 76.2 Lymphocytes % 14.1 L Monocytes % 8.3 Eosinophils % 0.7 L Basophils % 0.7 PT INR PTT (SP) Sodium 139 Potassium 3.9 Chloride 102 Carbon Dioxide 25 Anion Gap 15.9 BUN 16 Creatinine 0.80 BUN/Creatinine Ratio 20.0 Random Glucose 165 H Serum Osmolality 282.4 Calcium 9.7 Total Bilirubin 1.2 H AST 97 H ALT 56 Alkaline Phosphatase 86 Troponin I B-Natriuretic Peptide 69.8 Serum Total Protein 7.2 Albumin 3.6 Globulin 3.6 H Albumin/Globulin Ratio 1.0 L Urine Color Red Urine Appearance Cloudy Urine pH 5.5 Ur Specific Mousie >= 1.030 Urine Protein 100 H Urine Glucose (UA) Negative Urine Ketones 15 H Urine Blood Large H Urine Nitrite Negative Urine Bilirubin Moderate Urine Urobilinogen 0.2 Ur Leukocyte Esterase Negative Urine RBC Tntc H Urine WBC 1-3 Ur Epithelial Cells 0 Urine Bacteria Rare 07/10/19 07/10/19 12:40 12:40 WBC RBC Hgb Hct MCV MCH MCHC RDW Plt Count MPV Absolute Neuts (auto) Absolute Lymphs (auto) Absolute Monos (auto) Absolute Eos (auto) Absolute Basos (auto) Neutrophils % Lymphocytes % Monocytes % Eosinophils % Basophils % PT 9.6 INR < 1.00 PTT (SP) 25.0 Sodium Potassium Chloride Carbon Dioxide Anion Gap BUN Creatinine BUN/Creatinine Ratio Random Glucose Serum Osmolality Calcium Total Bilirubin AST ALT Alkaline Phosphatase Troponin I < 0.02 B-Natriuretic Peptide Serum Total Protein Albumin Globulin Albumin/Globulin Ratio Urine Color Urine Appearance Urine pH Ur Specific Mousie Urine Protein Urine Glucose (UA) Urine Ketones Urine Blood Urine Nitrite Urine Bilirubin Urine Urobilinogen Ur Leukocyte Esterase Urine RBC Urine WBC Ur Epithelial Cells Urine Bacteria - EKG/XRAY/CT EKG: Sinus - NSR with RBBB, HR 85, no ST elevations or q waves, axis normal, QRS widened 126 msecs but intervals otherwise normal, unchanged from 09/18/17 EKG XRAY: chest - No acute processes per my read CT Ordered: No CT Interpretation Call Back: No Departure - Departure Clinical Impression: Gross hematuria, Left kidney mass, Nephrolithiasis Time of Disposition: 16:33 Disposition: Discharge to Home or Self Care Condition: Fair Departure Forms: ED Discharge - Pt. Copy, Patient Portal Self Enrollment Instructions: Blood in the Urine (Hematuria) in Adults Diet: resume usual diet Referrals: Inocente Muñiz MD [Primary Care Provider] - 1 Week Home Medications: Ambulatory Orders Albuterol Inhaler [Ventolin Hfa Inhaler] 2 puff INH Q6H #1 inh 12/23/14 Budesonide Inhaler [Pulmicort Flexhaler] 1 puff INH BID #1 inh 12/23/14 Methylprednisolone [Medrol Dose Maximus] 4 mg PO QAM #1 tab 12/23/14 Pantoprazole Sodium [Protonix] 20 mg PO QAM #30 tab 12/23/14 Sucralfate Tab [Carafate Tab] 1 gm PO Q6H #20 tab 12/23/14 Prednisone [Deltasone] 20 mg PO DAILY #4 tab 09/18/17 Acetamin W/Cod #3 Tab [Tylenol w/CODEINE #3] 1 ea PO Q6HR PRN #40 tab 12/19/17 Additional Instructions: Follow up in the next [address] العراقي. His office should be calling you tomorrow morning to schedule a follow up visit later this week. If you do not hear from them, contact them by phone to schedule the visit. Return to the ED if you develop any concerning symptoms such as increasing volume of blood in the urine, chest pain, shortness of breath, feeling as if you may pass out, trouble or pain with urinating, etc... I strongly advise as well that you quit smoking as it causes permanent damage to your lungs and heart and greatly increases your risk of cancer.
--- NOTE | 2019-07-10 14:20 | RAD ---
EXAM DESCRIPTION: Chest,1 View CLINICAL HISTORY: 79 years Male, weakness, dizziness COMPARISON: 12/19/2017 TECHNIQUE: Single view radiograph of the chest. IMPRESSION: Stable normal size cardiac silhouette. Partially calcified aorta. Hyperinflated lungs. Scattered basal atelectasis. No lobar consolidation. No left pleural effusion. Right costophrenic angle not included within the image margins. Mild bilateral apical pleural thickening. No pneumothorax. Thoracic spondylosis. Electronically signed by: Jimy Butler MD 07/10/2019 2:18 PM [facility] [employer]
--- NOTE | 2019-07-10 15:43 | CT ---
EXAM DESCRIPTION: Abdomen/Pelvis w/wo Contrast CLINICAL HISTORY: gross painless hematuria COMPARISON: November 19, 2017 TECHNIQUE: CT of the abdomen and Pelvis was performed without and with IV contrast. This exam was performed according to our departmental dose-optimization program, which includes automated exposure control, adjustment of the mA and/or kV according to patient size and/or use of iterative reconstruction technique. FINDINGS: Pre-IV contrast images show punctate calculus in the mid left kidney, unchanged from November,. Renal vascular calcifications in the right renal hilum, also stable. No ureteral calculus. There are a few small left renal pelvic cysts, stable. Following IV contrast administration, no enhancing renal mass is identified. Delayed postcontrast images confirm bilateral renal contrast excretion. There is a filling defect centrally in the left renal pelvis measuring up to 2.4 cm diameter, increased in size from the prior study., Subtle hyperdense appearance on pre-and post-IV contrast images relative to the remainder of the left renal collecting system. No retroperitoneal adenopathy or renal vein abnormality. No bladder wall thickening or bladder calcification. Streak artifact from patient's left hip prosthesis slightly limits evaluation of the pelvis. Multiple tiny metallic foreign bodies in the prostate suggestive of brachytherapy seeds. The prostate is not enlarged, measuring 4.6 cm transverse diameter. No colonic wall thickening or pericolonic inflammation. Mural calcification in the abdominal aorta without aneurysm. Diffuse fatty infiltration of the liver. Tiny round low-density splenic lesion, nonspecific but stable from the prior exam and likely representing a cyst. Small hiatal hernia. No adrenal nodule. The pancreas is unremarkable. No lung base abnormality. Degenerative changes in the lumbar spine at multiple levels. IMPRESSION: Filling defect in the left renal pelvis best seen on delayed postcontrast images, slightly hyperdense appearance on pre and portal venous phase postcontrast imaging. The lesion is slightly increased in size of November, and remains suspicious for neoplasm especially transitional cell carcinoma. If not obtained already, urologic consultation is recommended. Small left renal parapelvic cysts, but no bladder wall thickening or additional abnormality to explain gross painless hematuria. Electronically signed by: Art Thompson MD 07/10/2019 3:42 PM MONITORING MANAGER
[2019-07-10 16:05] VITALS: BP 175/96; O2SAT 93
== END 2019-07-10 16:39 | disposition home or self-care (01) ==
LOC: ER 11:41
DX: N20.0 Calculus of kidney (principal); N28.89 Other specified disorders of kidney and ureter; R31.0 Gross hematuria; I45.10 Unspecified right bundle-branch block; J44.9 Chronic obstructive pulmonary disease, unspecified; F17.210 Nicotine dependence, cigarettes, uncomplicated; I10 Essential (primary) hypertension; K21.9 Gastro-esophageal reflux disease without esophagitis; Z85.46 Personal history of malignant neoplasm of prostate; Z79.899 Other long term (current) drug therapy

== ENCOUNTER → 2019-07-25 | Outpatient (CLI) | payer MEDICARE | LOC: NC 10:13 | PROVIDERS: ATTEND Family Medicine | DX: Z12.5 Encounter for screening for malignant neoplasm of prostate (principal); I10 Essential (primary) hypertension; J44.9 Chronic obstructive pulmonary disease, unspecified; D64.9 Anemia, unspecified; E78.2 Mixed hyperlipidemia | CPT/HCPCS: 80053; 80061; 85025; G0103 ==

== ENCOUNTER → 2019-09-12 | Outpatient (CLI) | payer MEDICARE | LOC: NC 13:03 | PROVIDERS: ATTEND Family Medicine | DX: R30.0 Dysuria (principal) ==

== ENCOUNTER 2019-09-23 10:49 | Emergency (ER) | payer MEDICARE ==
[2019-09-23] MEDS ORDERED: valACYclovir 500 MG TAB ONE (11:03)
[2019-09-23] MEDS ORDERED: HYDROcodone 7.5MG/APAP 325MG 1 EA TAB PO ONE (11:11)
[2019-09-23] MEDS ORDERED: valACYclovir 500 MG TAB PO SCH (11:30)
--- NOTE | 2019-09-23 11:35 | ED.PDOC ---
History of Present Illness - General Chief Complaint: Skin/Abrasion/Tear Stated Complaint: Right arm and shoulder pain Time Seen by Provider: 09/23/19 10:54 Source: patient Exam Limitations: no limitations - History of Present Illness Initial Comments: The patient is a 79-year-old male presented emergency room secondary to what appears to be developing shingles to the right upper extremity. This is most likely in the C5 or C6 nerve root. Some vesicles are developing. The area is exquisitely tender and he does have some underlying muscle spasms he reports that this started about a week ago. He also reports that about a month and a half ago he had 1 of his kidneys removed. No fever. No altered mental status. No evidence of any meningitis or encephalitis. No evidence of disseminated disease. Timing/Duration: 1 week Severity: moderate Improving Factors: nothing Worsening Factors: movement Associated Symptoms: denies symptoms Allergies/Adverse Reactions: Allergies NO KNOWN ALLERGY Allergy (Verified 07/10/19 12:17) Home Medications: Ambulatory Orders Albuterol Inhaler [Ventolin Hfa Inhaler] 2 puff INH Q6H #1 inh 12/23/14 Budesonide Inhaler [Pulmicort Flexhaler] 1 puff INH BID #1 inh 12/23/14 Methylprednisolone [Medrol Dose Maximus] 4 mg PO QAM #1 tab 12/23/14 Pantoprazole Sodium [Protonix] 20 mg PO QAM #30 tab 12/23/14 Sucralfate Tab [Carafate Tab] 1 gm PO Q6H #20 tab 12/23/14 Prednisone [Deltasone] 20 mg PO DAILY #4 tab 09/18/17 Acetamin W/Cod #3 Tab [Tylenol w/CODEINE #3] 1 ea PO Q6HR PRN #40 tab 12/19/17 Acetamin W/Cod #3 Tab [Tylenol w/CODEINE #3] 1 ea PO Q6HR PRN #30 tab 09/23/19 Valacyclovir HCl [Valtrex] 1 gm PO BID #14 tab 09/23/19 Review of Systems - Review of Systems Constitutional: States: no symptoms reported EENTM: States: no symptoms reported Respiratory: States: no symptoms reported Cardiology: States: no symptoms reported Gastrointestinal/Abdominal: States: no symptoms reported Genitourinary: States: no symptoms reported Musculoskeletal: States: see HPI Skin: States: see HPI Neurological: States: see HPI Endocrine: States: no symptoms reported All other Systems: No Change from Baseline Past Medical History (General) - Patient Medical History Hx Seizures: No Hx Stroke: No Hx Dementia: No Hx Asthma: No Hx of COPD: Yes Hx Cardiac Disorders: No Hx Congestive Heart Failure: No Hx Pacemaker: No Hx Hypertension: Yes Hx Thyroid Disease: No Hx Diabetes: No Hx Gastroesophageal Reflux: Yes Hx Renal Disease: No Hx Cancer: Yes - prostrate Hx of HIV: No Hx Hepatitis C: No Hx MRSA: No - Vaccination History Hx Tetanus, Diphtheria Vaccination: No Hx Influenza Vaccination: No Hx Pneumococcal Vaccination: Yes - Social History Hx Tobacco Use: Yes Cigarettes Packs Per Day: 1 Hx Alcohol Use: Yes - Former Hx Substance Use: No Family Medical History - Family History Father Family History: Unknown Physical Exam - Physical Exam General Appearance: Alert, Other - Obviously hurting Eye Exam: bilateral normal Ears, Nose, Throat: hearing grossly normal, normal pharynx Neck: non-tender, supple Respiratory: lungs clear, normal breath sounds, no respiratory distress, no accessory muscle use Cardiovascular/Chest: normal peripheral pulses, no edema, other - Regular rate Peripheral Pulses: radial,right: 2+, radial,left: 2+ Gastrointestinal/Abdominal: non tender, soft Back Exam: no CVA tenderness, no vertebral tenderness Extremity: normal range of motion, no pedal edema, no calf tenderness, normal capillary refill 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 Area is exquisitely tender to palpation. Comments: Vital Signs - 24 hr 09/23/19 09/23/19 11:03 11:26 Temperature 96.5 F L Pulse Rate [ 86 86 Left Brachial] Respiratory 20 20 Rate Blood Pressure 164/104 [Left Arm] O2 Sat by Pulse 99 Oximetry Progress - Progress Progress: 09/23/19 11:36 The patient is a 79-year-old male presented emergency room with what appears to be developing shingles from either the right sided C5 or C6 nerve root. The patient is going to be placed on Valtrex 1 g twice a day for the next 7 days, which is a reduction from the normal dose of 1 g 3 times a day, based on the recent reduction in renal capacity. The patient is also going to be written for some Tylenol 3. I do want him to follow back up with his primary care doctor in 2 or 3 days for reevaluation. There are certainly other medications that can be tried for pain control however none are extremely effective and all come with the potential for significant side effects in an older person. No evidence of further disseminated disease at this time. Take medications as n ecessary to avoid constipation with the Tylenol 3. ER warnings are given. jordan cosby [phone] 09/23/19 11:41 life skills instructor aware consulted Departure - Departure Clinical Impression: Shingles Qualifiers: Herpes zoster complications: without complications Qualified Code(s): B02.9 - Zoster without complications Disposition: Discharge to Home or Self Care Condition: Fair Departure Forms: ED Discharge - Pt. Copy, Patient Portal Self Enrollment Instructions: Shingles (DC) Diet: regular diet Activity: increase activity as tolerated Referrals: Inocente Muñiz MD [Primary Care Provider] - 1-5 Days Prescriptions: Acetamin W/Cod #3 Tab [Tylenol w/CODEINE #3] 1 ea PO Q6HR PRN #30 tab PRN Reason: Moderate To Severe Pain Valacyclovir HCl [Valtrex] 1 gm PO BID #14 tab Home Medications: Ambulatory Orders Albuterol Inhaler [Ventolin Hfa Inhaler] 2 puff INH Q6H #1 inh 12/23/14 Budesonide Inhaler [Pulmicort Flexhaler] 1 puff INH BID #1 inh 12/23/14 Methylprednisolone [Medrol Dose Maximus] 4 mg PO QAM #1 tab 12/23/14 Pantoprazole Sodium [Protonix] 20 mg PO QAM #30 tab 12/23/14 Sucralfate Tab [Carafate Tab] 1 gm PO Q6H #20 tab 12/23/14 Prednisone [Deltasone] 20 mg PO DAILY #4 tab 09/18/17 Acetamin W/Cod #3 Tab [Tylenol w/CODEINE #3] 1 ea PO Q6HR PRN #40 tab 12/19/17 Acetamin W/Cod #3 Tab [Tylenol w/CODEINE #3] 1 ea PO Q6HR PRN #30 tab 09/23/19 Valacyclovir HCl [Valtrex] 1 gm PO BID #14 tab 09/23/19 Additional Instructions: The patient is a 79-year-old male presented emergency room with what appears to be developing shingles from either the right sided C5 or C6 nerve root. The patient is going to be placed on Valtrex 1 g twice a day for the next 7 days, which is a reduction from the normal dose of 1 g 3 times a day, based on the recent reduction in renal capacity. The patient is also going to be written for some Tylenol 3. I do want him to follow back up with his primary care doctor in 2 or 3 days for reevaluation. There are certainly other medications that can be tried for pain control however none are extremely effective and all come with the potential for significant side effects in an older person. No evidence of further disseminated disease at this time. Take medications as necessary to avoid constipation with the Tylenol 3. ER warnings are given.
[2019-09-23 11:52] VITALS: BP 151/103; TEMP 96.8; O2SAT 100
== END 2019-09-23 11:52 | disposition home or self-care (01) ==
LOC: ER 10:49
DX: B02.9 Zoster without complications (principal); J44.9 Chronic obstructive pulmonary disease, unspecified; F17.200 Nicotine dependence, unspecified, uncomplicated

== ENCOUNTER → 2019-11-08 | Outpatient (CLI) | payer MEDICARE | LOC: LAB.O 14:14 | PROVIDERS: ATTEND Urology | DX: R31.0 Gross hematuria (principal) ==

== ENCOUNTER → 2019-11-15 | Outpatient (CLI) | payer MEDICARE | LOC: LAB.O 09:24 | PROVIDERS: ATTEND Internal Medicine Gastroenterology | DX: K92.1 Melena (principal) ==

== ENCOUNTER → 2019-12-13 | Outpatient (CLI) | payer MEDICARE | LOC: LAB.O 11:33 | PROVIDERS: ATTEND Internal Medicine Gastroenterology | DX: D64.9 Anemia, unspecified (principal) ==

== ENCOUNTER → 2020-01-01 | Outpatient (CLI) | payer MEDICARE | LOC: GMA MATASK 14:11 | PROVIDERS: ATTEND Family Medicine | DX: E78.2 Mixed hyperlipidemia (principal); I10 Essential (primary) hypertension ==

== ENCOUNTER → 2020-04-02 | Outpatient (CLI) | payer MEDICARE | LOC: NC 15:58 | PROVIDERS: ATTEND Family Medicine | DX: J44.9 Chronic obstructive pulmonary disease, unspecified (principal); N40.1 Benign prostatic hyperplasia with lower urinary tract symptoms ==

== ENCOUNTER → 2020-05-29 | Outpatient (CLI) | payer MEDICARE | LOC: NC 12:51 | PROVIDERS: ATTEND Family Medicine | DX: R21 Rash and other nonspecific skin eruption (principal); R23.8 Other skin changes; Z79.899 Other long term (current) drug therapy ==

== ENCOUNTER 2020-06-29 12:10 | Emergency (ER) | payer MEDICARE ==
--- NOTE | 2020-06-29 12:33 | ED.PDOC ---
History of Present Illness - General Time Seen by Provider: 06/29/20 12:13 Source: patient, RN notes reviewed, Vital Signs reviewed Exam Limitations: no limitations - History of Present Illness Initial Comments: Pleasant 80 yo male states his knee went out on him and he fell. did not hit head, no loc. COmplains of shoulder, wrist and knee pain. states this pain is chronic. Fell4 months ago and had several left sided rib fractures. takings tylneol #3 for pain, but doesn't help much. States wrist becoming more swollen. Allergies/Adverse Reactions: Allergies NO KNOWN ALLERGY Allergy (Verified 07/10/19 12:17) Home Medications: Ambulatory Orders Albuterol Inhaler [Ventolin Hfa Inhaler] 2 puff INH Q6H #1 inh 12/23/14 Budesonide Inhaler [Pulmicort Flexhaler] 1 puff INH BID #1 inh 12/23/14 Acetamin W/Cod #3 Tab [Tylenol w/CODEINE #3] 1 ea PO Q6HR PRN #40 tab 12/19/17 Acetamin W/Cod #3 Tab [Tylenol w/CODEINE #3] 1 ea PO Q6HR PRN #30 tab 09/23/19 Amoxicillin & Pot Clavulanate [Augmentin Tab] 875 mg PO DAILY #10 tab 02/18/20 Cyclobenzaprine HCl [Flexeril] 5 mg PO TID PRN #30 tab 02/18/20 Hydroxyzine HCl [Hydroxyzine Hydrochloride] 25 mg PO Q6H PRN 02/18/20 Pantoprazole Sodium [Protonix] 20 mg PO BID 02/18/20 predniSONE [Prednisone] 20 mg PO DAILY #6 tab 02/18/20 Prednisone 20 mg PO BID 5 Days #10 tab 06/29/20 Review of Systems - Review of Systems Constitutional: Denies: chills, fever EENTM: Denies: blurred vision, double vision, throat pain Respiratory: Denies: cough, short of breath Cardiology: Denies: chest pain Gastrointestinal/Abdominal: Denies: diarrhea, nausea Genitourinary: Denies: dysuria, pain Musculoskeletal: States: joint pain, joint swelling Skin: States: rash - for months following dermatology Neurological: Denies: headache, numbness, paresthesia Endocrine: Denies: unexplained weight gain, unexplained weight loss Hematologic/Lymphatic: Denies: easy bleeding, easy bruising Past Medical History (General) - Patient Medical History Hx Seizures: No Hx Stroke: No Hx Dementia: No Hx Asthma: No Hx of COPD: Yes Hx Cardiac Disorders: No Hx Congestive Heart Failure: No Hx Pacemaker: No Hx Hypertension: Yes Hx Thyroid Disease: No Hx Diabetes: No Hx Gastroesophageal Reflux: Yes Hx Renal Disease: No Hx Cancer: Yes - prostrate Hx of HIV: No Hx Hepatitis C: No Hx MRSA: No - Vaccination History Hx Tetanus, Diphtheria Vaccination: No Hx Influenza Vaccination: No Hx Pneumococcal Vaccination: Yes - Social History Hx Tobacco Use: Yes Hx Alcohol Use: Yes - Former Hx Substance Use: No Physical Exam - Physical Exam General Appearance: Alert, Comfortable, No apparent distress, Well Developed, Well Groomed, Well Hydrated, Well Nourished, Other - increased kyphosis. Head Injury: no evidence of injury, other - no benson sign or raccoon eyes ENT Exam: hearing grossly normal, no evidence of ENT injury, no dental injury, other - hearing aides Peripheral Pulses: radial,right: 2+, radial,left: 2+ Cardiovascular/Respiratory: regular rate, rhythm, no M/R/G, normal peripheral pulses, no JVD, normal breath sounds, no respiratory distress Gastrointestinal/Abdominal: normal bowel sounds, non tender, soft, no organomegaly, no pulsatile mass Back Exam: normal inspection, no CVA tenderness, no vertebral tenderness, other - increase kyphosis Extremity Exam: other - right wrist swelling, tenderness over distal radius, no snuff box tenderness. no erythema. knee crepitus, shoulder full range of passive motion. Neurologic: no motor/sensory deficits, alert, normal mood/affect, oriented x 3 Skin Exam: normal color, warm/dry - Tommy Coma Score Best Eye Response ([place]): (4) open spontaneously Best Verbal Response ([place]): (5) oriented Best Motor Response ([place]): (6) obeys commands [place] Total: 15 Progress - Progress Progress: 06/29/20 14:10 partial ddx: arthritis, fracture, sprain, shingles. The data reviewed when caring for this patient included: nurse notes, prior records, etc. The history and assessments from nurses notes were reviewed and considered, and the patient's home medication list was also reviewed and considered. My assessment and the results of testing completed here in the ED were discussed with the patient/family. All questions were answered, and they express understanding of my assessment and the plan. They have been instructed to return if their symptoms worsen, and have been asked to follow up with their primary care physician to recheck today's presenting complaint. return precautions given. I have reviewed medication, benefits, alternatives and side effects. Patient decided to proceed with medication. Rachael Morales DO #801 - EKG/XRAY/CT XRAY: knee - arthritis, no acute fracture Xray Comments: wrist/shoulder no acute fracture, rib fractures seen. Departure - Departure Clinical Impression: Fall Qualifiers: Encounter type: initial encounter Qualified Code(s): W19.XXXA - Unspecified fall, initial encounter Wrist pain Qualifiers: Laterality: left Qualified Code(s): M25.532 - Pain in left wrist Fracture of rib of left side Qualifiers: Encounter type: subsequent encounter Rib fracture type: multiple ribs Fracture type: closed Fracture healing: with routine healing Qualified Code(s): S22.42XD - Multiple fractures of ribs, left side, subsequent encounter for fracture with routine healing Knee pain Qualifiers: Chronicity: chronic Laterality: left Qualified Code(s): M25.562 - Pain in left knee; G89.29 - Other chronic pain Osteoarthritis Qualifiers: Osteoarthritis location: multiple joints Osteoarthritis type: unspecified Qualified Code(s): M15.9 - Polyosteoarthritis, unspecified Time of Disposition: 13:39 Disposition: Discharge to Home or Self Care Instructions: Osteoarthritis, Preventing Falls in the Older Adult Diet: resume usual diet Activity: increase activity as tolerated Referrals: Inocente Muñiz MD [Primary Care Provider] - 1-5 Days Prescriptions: Prednisone 20 mg PO BID 5 Days #10 tab Home Medications: Ambulatory Orders Albuterol Inhaler [Ventolin Hfa Inhaler] 2 puff INH Q6H #1 inh 12/23/14 Budesonide Inhaler [Pulmicort Flexhaler] 1 puff INH BID #1 inh 12/23/14 Acetamin W/Cod #3 Tab [Tylenol w/CODEINE #3] 1 ea PO Q6HR PRN #40 tab 12/19/17 Acetamin W/Cod #3 Tab [Tylenol w/CODEINE #3] 1 ea PO Q6HR PRN #30 tab 09/23/19 Amoxicillin & Pot Clavulanate [Augmentin Tab] 875 mg PO DAILY #10 tab 02/18/20 Cyclobenzaprine HCl [Flexeril] 5 mg PO TID PRN #30 tab 02/18/20 Hydroxyzine HCl [Hydroxyzine Hydrochloride] 25 mg PO Q6H PRN 02/18/20 Pantoprazole Sodium [Protonix] 20 mg PO BID 02/18/20 predniSONE [Prednisone] 20 mg PO DAILY #6 tab 02/18/20 Prednisone 20 mg PO BID 5 Days #10 tab 06/29/20 Additional Instructions: take prednisone with food or milk.
--- NOTE | 2020-06-29 13:13 | RAD ---
EXAM: XR Left Knee, 3 Views CLINICAL HISTORY: fall TECHNIQUE: Three views of the left knee. COMPARISON: 02/18/2020 FINDINGS: Bones/joints: Stable sclerotic area in the proximal tibia. There is stable narrowing of the patellofemoral joint. No acute osseous abnormality. No dislocation. Soft tissues: No abnormality noted. Vasculature: Atherosclerotic calcification present. IMPRESSION: No acute findings in the left knee. Stable chronic changes. Electronically signed by: Fe Negron MD 06/29/2020 1:11 PM [facility]
--- NOTE | 2020-06-29 13:15 | RAD ---
EXAM: XR Left Shoulder Complete, 2 Views CLINICAL HISTORY: fall TECHNIQUE: Two views of the left shoulder. COMPARISON: 02/18/2020. FINDINGS: Bones/joints: There are acute fractures of the lateral 5th and 6th ribs. Stable glenohumeral narrowing. No dislocation. Soft tissues: No abnormality noted. IMPRESSION: 1. There are acute fractures of the left lateral 5th and 6th ribs. 2. Degenerative changes in the shoulder. Electronically signed by: Fe Negron MD 06/29/2020 1:13 PM [facility]
--- NOTE | 2020-06-29 13:16 | RAD ---
EXAM: XR Left Wrist Complete, 3 Views CLINICAL HISTORY: fall TECHNIQUE: Frontal, lateral and oblique views of the left wrist. COMPARISON: No relevant prior studies available. FINDINGS: Bones/joints: There is mild to moderate narrowing and spurring of the 1st carpometacarpal joint. There is mild spurring of the radial styloid. No fracture. No dislocation. Soft tissues: Periarticular soft tissue swelling noted. No radiopaque foreign body. IMPRESSION: Chronic changes as above. No acute disease. Electronically signed by: Fe Negron MD 06/29/2020 1:14 PM [facility]
[2020-06-29] MEDS ORDERED: LIDOCAINE 2 % GEL 5 ML TUBE TOP ONE (13:35)
[2020-06-29] MEDS ORDERED: predniSONE 20 MG TAB PO ONE (14:19)
[2020-06-29 17:32] VITALS: BP 169/86; TEMP 97.5; O2SAT 96
== END 2020-06-29 16:45 | disposition home or self-care (01) ==
LOC: ER 12:10
DX: S22.42XA Multiple fractures of ribs, left side, initial encounter for closed fracture (principal); M19.032 Primary osteoarthritis, left wrist; M19.012 Primary osteoarthritis, left shoulder; M25.562 Pain in left knee; M25.532 Pain in left wrist; I45.10 Unspecified right bundle-branch block; R29.6 Repeated falls; G89.29 Other chronic pain; J44.9 Chronic obstructive pulmonary disease, unspecified; I10 Essential (primary) hypertension; K21.9 Gastro-esophageal reflux disease without esophagitis; Z79.899 Other long term (current) drug therapy; Z85.46 Personal history of malignant neoplasm of prostate; W19.XXXA Unspecified fall, initial encounter; Y92.9 Unspecified place or not applicable
CPT/HCPCS: 73030; 73110; 73562; 93005; 99284; J7512